=== PATIENT | female | born 1985 | race Caucasian/White ===

== ENCOUNTER → 2022-10-13 08:05 | Outpatient (CLI) | payer OTHER, SELFPAY ==
--- NOTE | 2022-10-13 | DI.MRI.S_ITS ---
PROCEDURE: MR LUMBAR SPINE WO CON INDICATIONS: Lumbago with sciatica, left side TECHNIQUE: Noncontrast sagittal T1 spin echo and T2 fast echo, sagittal STIR, and T2 fast spin echo through the lumbar spine. In cases with scoliosis, additional coronal T2 fast spin echo may be performed. COMPARISON: [facility], MR, MR LUMBAR SPINE WO CON, 11/15/2015, 12:07. [facility], CR, XR LUMBAR SPINE 2 OR 3 VIEWS, 12/26/2021, 11:09. FINDINGS: Image quality: Excellent. Alignment and Curvature: 5 lumbar type vertebral bodies are present by plain film. There is normal bony alignment. Bone Marrow: Marrow is of normal overall signal. No acute vertebral body compression fractures. Spinal Cord: Conus medullaris terminates at the mid L2 level. Visualized cord demonstrates normal signal and size. Paraspinous Soft Tissues: No paravertebral masses. T12-L1: Normal appearance. L1-L2: Normal appearance. L2-L3: Normal appearance. L3-L4: Normal appearance. L4-L5: Mild disc desiccation. Minimal diffuse disc bulge. No significant canal nor foraminal stenosis. L5-S1: Mild disc desiccation and diffuse disc bulge. Mild bilateral facet hypertrophy. Mild canal stenosis. Mild bilateral foraminal stenosis. No significant change. IMPRESSION: 1. Mild disc and facet disease as above causing mild canal and foraminal stenoses. No neural impingement. Dictated by: Patience Sam M.D. on 10/13/2022 at 10:48 Approved by: Patience Sam M.D. on 10/13/2022 at 10:50
== END ==
PROVIDERS: Referring Provider Physical Medicine & Rehabilitation; Visit Provider Physical Medicine & Rehabilitation
DX: M54.42 Lumbago with sciatica, left side (principal); M51.36 Other intervertebral disc degeneration, lumbar region; M48.061 Spinal stenosis, lumbar region without neurogenic claudication; M47.816 Spondylosis without myelopathy or radiculopathy, lumbar region
CPT/HCPCS: 72148

== ENCOUNTER → 2024-05-26 08:27 | Outpatient (CLI) | payer OTHER, SELFPAY ==
--- NOTE | 2024-05-26 | DI.RAD.S_ITS ---
PROCEDURE: FL ARTHROGRAM HIP RT INDICATIONS: RIGHT HIP PAIN TECHNIQUE: The indications, alternatives, benefits, risks, and complications of the procedure were explained to the patient. Written informed consent was obtained and placed in the chart. The hip was examined fluoroscopically with the legs fixed in slight internal rotation, and a site for needle placement chosen for entry into the hip joint from an anterior approach. Care was taken to locate the common femoral artery and vein beforehand. The skin was prepped and draped in a sterile fashion, and 1% Lidocaine infiltrated from skin down to joint capsule. A spinal needle was inserted into the joint, and a small amount of iodinated contrast media injected to confirm intra-articular placement of the needle tip. This was followed by approximately 10 mL dilute solution of a gadolinium containing MR contrast agent. The needle was removed and a dressing was applied. The patient was given postprocedural instructions and sent to the MR suite for imaging. COMPARISON: None. FINDINGS: A single fluoroscopic spot image demonstrates intra-articular location of injected iodinated contrast. IMPRESSION: Successful fluoroscopically guided administration of dilute Gadolinium solution into the hip joint for MR arthrogram. Dictated by: Bladimir Price M.D. on 05/26/2024 at 10:30 Approved by: Bladimir Price M.D. on 05/26/2024 at 10:37
--- NOTE | 2024-05-26 | DI.MRI.S_ITS ---
PROCEDURE: MR HIP RT W CON INDICATIONS: RIGHT HIP PAIN TECHNIQUE: After the administration of 10 mL of dilute intra-articular Gadolinium contrast, coronal STIR of the bony pelvis; coronal and oblique axial T1 spin echo with fat saturation, axial T2 fast spin echo with fat saturation, sagittal T1 spin echo with and without fat saturation of the involved hip. COMPARISON: [facility], , FL ARTHROGRAM HIP RT, 05/26/2024, 9:01. FINDINGS: Image quality: Diagnostic Bones: Pelvic ring: Intact Femoral head and neck: No displaced fracture. There is minimal edema at the femoral neck. Ligamentum teres: Intact. Lumbar spine and sacrum: No acute finding. Tendons: Abductors: Minimal bursal fluid Adductors and rectus abdominis: Intact. No pubic symphyseal edema. IT band: Intact. Iliopsoas: Intact. No bursitis. Hamstrings: Intact. Rectus femoris: Intact. Sartorius: Intact. Joint: Joint space: Filled with intra-articular contrast Labrum: No definite superior labral tear on coronal images. There is a small cleft seen in the anterior labrum (7/14) Cartilage: Unremarkable Soft tissues: Quadratus femoris: No edema or atrophy. Piriformis: Symmetric. Intrapelvic structures: Not well assessed on this study, no gross abnormality. Probably physiologic appearance of the reproductive organs. IUD is present. IMPRESSION: A small contrast filled cleft is seen in the anterior labrum which may represent a small tear. Differential includes a recess, correlate with location of symptoms. The superior labrum appears intact. Minimal edema at the femoral neck without displaced fracture component, possibly a minimal stress reaction Minimal bursal fluid adjacent to the upper abductor insertion. Dictated by: Constantin Nix M.D. on 05/26/2024 at 14:50 Approved by: Constantin Nix M.D. on 05/26/2024 at 14:56
[2024-05-26] MEDS: LIDOCAINE 1% 20 ML INJ (10:32)
[2024-05-26] MEDS: SODIUM CHLORIDE 0.9 % 20 ML VIAL IV (10:33)
== END ==
PROVIDERS: Referring Provider Orthopaedic Surgery Adult Reconstructive Orthopaedic Surgery; Visit Provider Orthopaedic Surgery Adult Reconstructive Orthopaedic Surgery
DX: M25.551 Pain in right hip (principal)
CPT/HCPCS: 27093; 73525; 73722; A9579; Q9967